=== PATIENT | female | born 1980 | race Caucasian/White ===

== ENCOUNTER 2017-12-24 07:21 | Emergency (ER) | payer OTHER ==
[~2017-12-24] VITALS: Ht 157.5 cm; Wt 94.8 kg
--- NOTE | 2017-12-24 07:44 | PHYS DOC ---
Past Medical History Past Medical History: Constipation, Other Additional Past Medical Histor: seasonal allergies, back pain, endometriosis Past Surgical History: Other Additional Past Surgical Histo: back, umbilical surgery Alcohol Use: Occasionally Drug Use: None Adult General Chief Complaint Chief Complaint: ABDOMINAL PAIN HPI HPI Patient is a 36 year old female presented to ER today for evaluation of nausea , vomiting, diarrhea with lower abdominal pain since waking up this morning. Patient denies any fever. Patient denies any chest pain, no trouble breathing. Patient still has her gallbladder and appendix. Patient denies any urinary symptom, no vaginal bleeding or discharge. Patient has history of tubal ligation. She says she is on her period Review of Systems Review of Systems Constitutional: Denies fever or chills [] Eyes: Denies change in visual acuity, redness, or eye pain [] HENT: Denies nasal congestion or sore throat [] Respiratory: Denies cough or shortness of breath [] Cardiovascular: No additional information not addressed in HPI [] GI: POSITIVE FOR abdominal pain, nausea, vomiting, NO bloody stools, positive for diarrhea [] : Denies dysuria or hematuria [] Musculoskeletal: Denies back pain or joint pain [] Integument: Denies rash or skin lesions [] Neurologic: Denies headache, focal weakness or sensory changes [] Endocrine: Denies polyuria or polydipsia [] All other systems were reviewed and found to be within normal limits, except as documented in this note. Current Medications Current Medications Current Medications Medications (Trade) Dose Ordered Sig/Bam Start Time Stop Time Status Last Admin Dose Admin Fentanyl Citrate (Fentanyl 2ml Vial) 25 mcg 1X ONCE 12/24/17 08:00 12/24/17 08:01 DC 12/24/17 08:03 25 MCG Info (CONTRAST GIVEN -- Rx MONITORING) 1 each PRN DAILY PRN 12/24/17 08:00 12/26/17 07:59 Iohexol (Omnipaque 240 Mg/ml) 50 ml 1X ONCE 12/24/17 08:00 12/24/17 08:01 DC Iohexol (Omnipaque 300 Mg/ml) 75 ml 1X ONCE 12/24/17 08:00 12/24/17 08:01 DC 12/24/17 08:00 75 ML Ondansetron HCl (Zofran) 4 mg 1X ONCE 12/24/17 08:00 12/24/17 08:01 DC 12/24/17 08:03 4 MG Sodium Chloride 1,000 ml @ 1,000 mls/hr Q1H 12/24/17 08:00 12/24/17 08:59 DC 12/24/17 08:04 1,000 MLS/HR Allergies Allergies Allergies Coded Allergies Type Severity Reaction Last Updated Verified latex Allergy Intermediate 12/24/17 Yes Physical Exam Physical Exam Constitutional: Well developed, well nourished, no acute distress, non-toxic appearance. [] HENT: Normocephalic, atraumatic, bilateral external ears normal, oropharynx moist, no oral exudates, nose normal. [] Eyes: PERRLA, EOMI, conjunctiva normal, no discharge. [] Neck: Normal range of motion, no tenderness, supple, no stridor. [] Cardiovascular:Heart rate regular rhythm, no murmur [] Lungs & Thorax: Bilateral breath sounds clear to auscultation [] Abdomen: Bowel sounds normal, soft, There is tenderness to palpation in periumbillical area., no masses, no pulsatile masses, no hernia, no rebound tenderness, no guarding. Skin: Warm, dry, no erythema, no rash. [] Back: No tenderness, no CVA tenderness. [] Extremities: No tenderness, no cyanosis, no clubbing, ROM intact, no edema. [] Neurologic: Alert and oriented X 3, normal motor function, normal sensory function, no focal deficits noted. [] Psychologic: Affect normal, judgement normal, mood normal. [] Current Patient Data Vital Signs Vital Signs Date Time Temp Pulse Resp B/P (MAP) Pulse Ox O2 Delivery O2 Flow Rate FiO2 12/24/17 08:30 86 16 125/86 (99) 97 Room Air 12/24/17 07:41 98.0 98.0 Lab Values Laboratory Tests Test 12/24/17 07:31 12/24/17 07:39 12/24/17 07:55 Urine Collection Type Unknown Urine Color Yellow Urine Clarity Clear Urine pH 7.0 Urine Specific [place] 1.010 Urine Protein Negative mg/dL (NEG-TRACE) Urine Glucose (UA) Negative mg/dL (NEG) Urine Ketones (Stick) Negative mg/dL (NEG) Urine Blood Large (NEG) Urine Nitrite Negative (NEG) Urine Bilirubin Negative (NEG) Urine Urobilinogen Dipstick 0.2 mg/dL (0.2 mg/dL) Urine Leukocyte Esterase Trace (NEG) Urine RBC >40 /HPF (0-2) Urine WBC 1-4 /HPF (0-4) Urine Squamous Epithelial Cells Few /LPF Urine Bacteria Few /HPF (0-FEW) POC Urine HCG, Qualitative Hcg negative (Negative) White Blood Count 6.6 x10^3/uL (4.0-11.0) Red Blood Count 4.85 x10^6/uL (3.50-5.40) Hemoglobin 12.1 g/dL (12.0-15.5) Hematocrit 36.4 % (36.0-47.0) Mean Corpuscular Volume 75 fL (79-100) L Mean Corpuscular Hemoglobin 25 pg (25-35) Mean Corpuscular Hemoglobin Concent 33 g/dL (31-37) Red Cell Distribution Width 16.5 % (11.5-14.5) H Platelet Count 292 x10^3/uL (140-400) Neutrophils (%) (Auto) 67 % (31-73) Lymphocytes (%) (Auto) 24 % (24-48) Monocytes (%) (Auto) 5 % (0-9) Eosinophils (%) (Auto) 3 % (0-3) Basophils (%) (Auto) 1 % (0-3) Neutrophils # (Auto) 4.5 x10^3uL (1.8-7.7) Lymphocytes # (Auto) 1.6 x10^3/uL (1.0-4.8) Monocytes # (Auto) 0.3 x10^3/uL (0.0-1.1) Eosinophils # (Auto) 0.2 x10^3/uL (0.0-0.7) Basophils # (Auto) 0.1 x10^3/uL (0.0-0.2) Prothrombin Time 12.2 SEC (11.7-14.0) Prothrombin Time INR 1.0 (0.8-1.1) PTT 30 SEC (24-38) Sodium Level 138 mmol/L (136-145) Potassium Level 3.9 mmol/L (3.5-5.1) Chloride Level 102 mmol/L (98-107) Carbon Dioxide Level 28 mmol/L (21-32) Anion Gap 8 (6-14) Blood Urea Nitrogen 8 mg/dL (7-20) Creatinine 0.8 mg/dL (0.6-1.0) Estimated GFR (Cockcroft-Gault) 80.3 BUN/Creatinine Ratio 10 (6-20) Glucose Level 123 mg/dL (70-99) H Calcium Level 9.1 mg/dL (8.5-10.1) Total Bilirubin 0.2 mg/dL (0.2-1.0) Aspartate Amino Transferase (AST) 12 U/L (15-37) L Alanine Aminotransferase (ALT) 22 U/L (14-59) Alkaline Phosphatase 68 U/L (46-116) Total Protein 7.3 g/dL (6.4-8.2) Albumin 3.5 g/dL (3.4-5.0) Albumin/Globulin Ratio 0.9 (1.0-1.7) L Lipase 129 U/L (73-393) Laboratory Tests 12/24/17 07:55 Laboratory Tests 12/24/17 07:55 EKG EKG [] Radiology/Procedures Radiology/Procedures [][facility] [address] [place] [address] IMAGING REPORT Signed PATIENT: MARTINA WILKERSON ACCOUNT: [id number] : 1980 LOCATION: ER AGE: 36 SEX: F EXAM STATUS: REG ER ORD. PHYSICIAN: FLO ORTIZ DO REASON: LOWER ABDOMINAL PAIN, NAUSEA, VOMITING SINCE THIS MORNING PROCEDURE: CT ABD PELV W/ORAL&IV CONTRAST PQRS Compliance statement: One or more of the following individualized dose reduction techniques were utilized for this examination: 1. Automated exposure control. 2. Adjustment of the mA and/or kV according to patient size. 3. Use of iterative reconstruction technique. Indication:LOWER ABD PAIN WITH NAUSEA AND VOMITING
OMNI 300 75ML, OMNI 240 50ML ORAL, NO PRIORS TECHNIQUE: CT abdomen and pelvis with IV contrast with multiplanar reformats. COMPARISON: None FINDINGS: Heart is normal in size. No pericardial or pleural effusion. Clear lung bases. Liver, spleen, gallbladder, pancreas, adrenals and kidneys are within normal limits. No enlarged retroperitoneal or pelvic adenopathy. No free pelvic fluid or ascites. No bowel obstruction. Moderate diffuse colonic stool burden. Normal appendix. There is a short segment narrowing of the proximal colon measuring approximately 5 cm in length with mucosal enhancement. No pericolonic inflammatory changes. Fluid-filled ascending colon is seen. There is mild circumferential wall thickening of the terminal ileum with mucosal enhancement. Anteverted uterus. Urinary bladder is within normal limits. No pneumoperitoneum or pneumatosis intestinalis. No suspicious bony lesion. Advanced L5-S1 degenerative disc disease. There is right parasagittal small supraumbilical omental fat-containing hernia with neck of the hernia measuring 2.0 cm. IMPRESSION: 1. Questionable mild wall thickening of the terminal ileum and mucosal enhancement with fluid-filled distal bowel loops. Findings suggests enteritis. Clinically correlate with signs and symptoms. 2. Short segment narrowing of the proximal transverse colon with mucosal enhancement. Differential diagnoses includes artifact secondary to peristalsis or short segment colitis or stricture. Correlate with nonemergent colonoscopy. Electronically signed by: Harshil Linares DO (12/24/2017 9:43 AM) [id number] DICTATED and SIGNED BY: HARSHIL LINARES DO DATE: 12/24/17 0936 Course & Med Decision Making Course & Med Decision Making Pertinent Labs and Imaging studies reviewed. (See chart for details) [] Dragon Disclaimer Dragon Disclaimer This electronic medical record was generated, in whole or in part, using a voice recognition dictation system. Departure Departure Impression: Primary Impression: Gastroenteritis Disposition: 01 HOME, SELF-CARE Condition: STABLE Referrals: REHAN MARINELLI (PCP) Patient Instructions: Viral Gastroenteritis Scripts Ondansetron Hcl (ZOFRAN) 4 Mg Tablet 1 TAB PO Q6HRS PRN for NAUSEA, #15 TAB Prov: FLO ORTIZ DO 12/24/17 Ciprofloxacin Hcl (CIPRO) 500 Mg Tablet 1 TAB PO BID for 5 Days, #10 TAB Prov: FLO ORTIZ DO 12/24/17 FLO ORTIZ DO Dec 24, 2017 07:43
[2017-12-24 07:48] LABS: BILIRUBIN,URINE NEGATIVE (NEG); CLARITY,URINE CLEAR; COLOR,URINE YELLOW; NITRITE,URINE NEGATIVE (NEG); PROTEIN,URINE NEGATIVE (NEG-TRACE); UROBILINOGEN,URINE 0.2 mg/dL (0.2 mg/dL)
[2017-12-24 07:53] LABS: RBC,URINE >40 /HPF (0-2); SQUAMOUS EPITHELIAL CELL,UR FEW /LPF
[2017-12-24 07:54] LABS: BACTERIA,URINE FEW /HPF (0-FEW)
[2017-12-24] MEDS ORDERED: IOHEXOL 240 MG/ML 50ML VIAL. PO ONE (08:00)
[2017-12-24] MEDS ORDERED: CONTRAST GIVEN. MC PRN (08:00)
[2017-12-24] MEDS: IOHEXOL 300 MG/ML 100ML VIAL. IV ONE (08:00)
[2017-12-24] MEDS: fentaNYL PF VIAL 100 MCG/2 ML VIAL IV ONE (08:03)
[2017-12-24] MEDS: ONDANSETRON PF 4 MG/2 ML VIAL. IV ONE (08:03)
[2017-12-24] MEDS: IV NORMAL SALINE 1000ML BAG 1,000 ML IV SCH (08:04)
[2017-12-24 08:18] LABS: BASO # 0.1 x10^3/uL (0.0-0.2); BASO % 1 % (0-3); EOS # 0.2 x10^3/uL (0.0-0.7); EOS % 3 % (0-3); HEMATOCRIT 36.4 % (36.0-47.0); HEMOGLOBIN 12.1 g/dL (12.0-15.5); LYMPH # 1.6 x10^3/uL (1.0-4.8); LYMPH % 24 % (24-48); MEAN CORPUSCULAR HEMOGLOBIN 25 pg (25-35); MEAN CORPUSCULAR HGB CONC 33 g/dL (31-37); MEAN CORPUSCULAR VOLUME 75 fL (79-100); MONO # 0.3 x10^3/uL (0.0-1.1); MONO % 5 % (0-9); NEUT # 4.5 x10^3uL (1.8-7.7); NEUT % 67 % (31-73); PLATELET COUNT 292 x10^3/uL (140-400); RED BLOOD COUNT 4.85 x10^6/uL (3.50-5.40); RED CELL DISTRIBUTION WIDTH 16.5 % (11.5-14.5); WHITE BLOOD COUNT 6.6 x10^3/uL (4.0-11.0)
[2017-12-24 08:22] LABS: PROTHROMBIN TIME PATIENT 12.2 SEC (11.7-14.0)
[2017-12-24 08:25] LABS: CALCIUM 9.1 mg/dL (8.5-10.1); CREATININE 0.8 mg/dL (0.6-1.0); GFR 80.3; POTASSIUM 3.9 mmol/L (3.5-5.1)
[2017-12-24 08:29] LABS: ALBUMIN 3.5 g/dL (3.4-5.0); ALBUMIN/GLOBULIN RATIO 0.9 (1.0-1.7); TOTAL BILIRUBIN 0.2 mg/dL (0.2-1.0); TOTAL PROTEIN 7.3 g/dL (6.4-8.2)
--- NOTE | 2017-12-24 09:46 | RAD ---
PQRS Compliance statement: One or more of the following individualized dose reduction techniques were utilized for this examination: 1. Automated exposure control. 2. Adjustment of the mA and/or kV according to patient size. 3. Use of iterative reconstruction technique. Indication:LOWER ABD PAIN WITH NAUSEA AND VOMITING
OMNI 300 75ML, OMNI 240 50ML ORAL, NO PRIORS TECHNIQUE: CT abdomen and pelvis with IV contrast with multiplanar reformats. COMPARISON: None FINDINGS: Heart is normal in size. No pericardial or pleural effusion. Clear lung bases. Liver, spleen, gallbladder, pancreas, adrenals and kidneys are within normal limits. No enlarged retroperitoneal or pelvic adenopathy. No free pelvic fluid or ascites. No bowel obstruction. Moderate diffuse colonic stool burden. Normal appendix. There is a short segment narrowing of the proximal colon measuring approximately 5 cm in length with mucosal enhancement. No pericolonic inflammatory changes. Fluid-filled ascending colon is seen. There is mild circumferential wall thickening of the terminal ileum with mucosal enhancement. Anteverted uterus. Urinary bladder is within normal limits. No pneumoperitoneum or pneumatosis intestinalis. No suspicious bony lesion. Advanced L5-S1 degenerative disc disease. There is right parasagittal small supraumbilical omental fat-containing hernia with neck of the hernia measuring 2.0 cm. IMPRESSION: 1. Questionable mild wall thickening of the terminal ileum and mucosal enhancement with fluid-filled distal bowel loops. Findings suggests enteritis. Clinically correlate with signs and symptoms. 2. Short segment narrowing of the proximal transverse colon with mucosal enhancement. Differential diagnoses includes artifact secondary to peristalsis or short segment colitis or stricture. Correlate with nonemergent colonoscopy. Electronically signed by: Harshil Linares DO (12/24/2017 9:43 AM) [id number]
[2017-12-24 10:30] VITALS: BP 122/67
[2017-12-24] MEDS ORDERED: CIPR500T94 PO (10:30)
[2017-12-24] MEDS ORDERED: ONDA4TAB7 PO (10:30)
== END 2017-12-24 11:14 | disposition home or self-care (01) ==
LOC: ER 07:21
DX: K52.89 Other specified noninfective gastroenteritis and colitis (principal); Z98.51 Tubal ligation status; Z91.040 Latex allergy status
CPT/HCPCS: 36415; 74177; 80053; 81001; 81025; 83690; 85025; 85610; 85730; 96361; 96374; 96375; 99285; J2405; J3010; J7030; Q9967

== ENCOUNTER 2018-02-02 12:39 | Emergency (ER) | payer OTHER ==
[~2018-02-02] VITALS: Ht 160 cm; Wt 94.8 kg
[~2018-02-02 12:39] MED LIST: CIPR500T94 PO; ONDA4TAB7 PO
[2018-02-02 13:11] VITALS: BP 147/74
[2018-02-02] MEDS ORDERED: IBUPROFEN 600 MG TABLET. PO ONE (13:30)
[2018-02-02] MEDS ORDERED: IBUP-1007 PO (13:40)
[2018-02-02] MEDS ORDERED: BENZ100C PO (13:40)
[2018-02-02] MEDS ORDERED: PRED20TA PO (13:40)
--- NOTE | 2018-02-02 13:40 | PHYS DOC ---
Past Medical History Past Medical History: Bipolar, Constipation, Other Additional Past Medical Histor: seasonal allergies, back pain, endometriosis, fibromyalgia, nerve damage Past Surgical History: Other Additional Past Surgical Histo: back, umbilical surgery, tubal blocks Alcohol Use: Occasionally Drug Use: None Adult General Chief Complaint Chief Complaint: COUGH HPI HPI Patient is a 37 year old female who presents with cough, headache, nausea, runny nose, generalized body aches she rates a 7 out of 10 that started yesterday at 1600. She denies any, diarrhea, fever. She states she is not taking any medications for her symptoms. She has history of smoking and asthma. She doesn't take anything for her asthma because she doesn't have any problems. Patient is allergic to latex. Review of Systems Review of Systems Constitutional: Denies fever or chills [] Eyes: Denies change in visual acuity, redness, or eye pain [] HENT: nasal congestion. Denies sore throat [] Respiratory: cough. Denies shortness of breath [] Cardiovascular: No additional information not addressed in HPI [] GI: Denies abdominal pain. nausea, denies vomiting, bloody stools or diarrhea [] : Denies dysuria or hematuria [] Musculoskeletal: Body aches Denies back pain or joint pain [] Integument: Denies rash or skin lesions [] Neurologic: headache, denies focal weakness or sensory changes [] All other systems were reviewed and found to be within normal limits, except as documented in this note. Current Medications Current Medications Current Medications Medications (Trade) Dose Ordered Sig/Bam Start Time Stop Time Status Last Admin Dose Admin Ibuprofen (Motrin) 600 mg 1X ONCE 02/02/18 13:30 02/02/18 13:31 DC 02/02/18 13:29 600 MG Allergies Allergies Allergies Coded Allergies Type Severity Reaction Last Updated Verified latex Allergy Intermediate 12/24/17 Yes Physical Exam Physical Exam Constitutional: Well developed, well nourished, no acute distress, non-toxic appearance. [] HENT: Normocephalic, atraumatic, bilateral external ears normal, oropharynx moist, no oral exudates, nose normal. Throat Reddened without exudates. Clear rhinorrhea. [] Eyes: PERRLA, EOMI, conjunctiva normal, no discharge. [] Neck: Normal range of motion, no tenderness, supple, no stridor. [] Cardiovascular:Heart rate regular rhythm, no murmur [] Lungs & Thorax: Bilateral breath sounds clear to auscultation [] Abdomen: Bowel sounds normal, soft, no tenderness, no masses, no pulsatile masses. [] Skin: Warm, dry, no erythema, no rash. [] Back: No tenderness, no CVA tenderness. [] Extremities: No tenderness, no cyanosis, no clubbing, ROM intact, no edema. [] Neurologic: Alert and oriented X 3, normal motor function, normal sensory function, no focal deficits noted. [] Psychologic: Affect normal, judgement normal, mood normal. [] Current Patient Data Vital Signs Vital Signs Date Time Temp Pulse Resp B/P (MAP) Pulse Ox O2 Delivery O2 Flow Rate FiO2 02/02/18 13:11 99.0 83 16 147/74 (98) 96 Room Air 99.0 Lab Values Laboratory Tests Test 02/02/18 13:30 Influenza Type A Antigen Positive (NEGATIVE) Influenza Type B Antigen Negative (NEGATIVE) EKG EKG [] Radiology/Procedures Radiology/Procedures [] Course & Med Decision Making Course & Med Decision Making Patient is a 37 year old female who presents with cough, headache, nausea, runny nose, generalized body aches she rates a 7 out of 10 that started yesterday at 1600. She denies any, diarrhea, soa, chest pain or fever. She states she is not taking any medications for her symptoms. She has history of smoking and asthma. She doesn't take anything for her asthma because she doesn' t have any problems. Patient is allergic to latex. Afebrile. Lungs are clear to auscultation all lobes. Alert and oriented. Skin is pink warm and dry. Mucous membranes are moist. Bilateral tympanic membranes are pearly white. Throat is reddened but without exudates. Abdomen is soft and nontender. She has no rashes. FLU A Positive Staff Physician Addendum: I was working in the ER during the course of this patient's visit. I was available for consultation as needed, but I was not directly involved in the care of this patient. Dragon Disclaimer Dragon Disclaimer This electronic medical record was generated, in whole or in part, using a voice recognition dictation system. Departure Departure Impression: Primary Impression: Viral respiratory infection Additional Impression: Influenza A Disposition: 01 HOME, SELF-CARE Condition: STABLE Referrals: REHAN MARINELLI (PCP) Patient Instructions: Upper Respiratory Infection, Adult, Viral Infections Additional Instructions: Follow up with your primary care. Take medications as prescribed. Try taking otc cold medications. Scripts Oseltamivir Phosphate (TAMIFLU) 75 Mg Capsule 1 CAP PO BID, #10 CAP Prov: OSMAN SANCHEZ CRANE OPERATOR 02/02/18 Ibuprofen (IBUPROFEN) 600 Mg Tablet 600 MG PO PRN Q6HRS PRN for INFLAMMATION, #20 TAB Prov: OSMAN SANCHEZ CRANE OPERATOR 02/02/18 Benzonatate (TESSALON PERLE) 100 Mg Capsule 1 CAP PO TID, #21 CAP Prov: OSMAN SANCHEZ CRANE OPERATOR 02/02/18 Prednisone (PREDNISONE) 20 Mg Tablet 1 TAB PO DAILY, #5 TAB Prov: OSMAN SANCHEZ CRANE OPERATOR 02/02/18 Problem Qualifiers OSMAN SANCHEZ APRN Feb 02, 2018 13:40 EDSON LOPEZ MD Feb 02, 2018 18:01
[2018-02-02 14:01] LABS: INFLUENZA A PATIENT POSITIVE (NEGATIVE); INFLUENZA B PATIENT NEGATIVE (NEGATIVE)
[2018-02-02] MEDS ORDERED: OSEL75CA PO (14:03)
== END 2018-02-02 14:24 | disposition home or self-care (01) ==
LOC: ER 12:39
DX: J09.X2 Influenza due to identified novel influenza A virus with other respiratory manifestations (principal); F31.9 Bipolar disorder, unspecified; Z91.040 Latex allergy status
CPT/HCPCS: 87804; 99283

== ENCOUNTER 2018-03-31 13:34 | Emergency (ER) | payer SELFPAY ==
[~2018-03-31] VITALS: Ht 160 cm; Wt 94.8 kg
[~2018-03-31 13:34] MED LIST changes: +BENZ100C PO; +IBUP-1007 PO; +OSEL75CA PO; +PRED20TA PO
[2018-03-31 13:51] VITALS: BP 120/67
[2018-03-31 14:11] LABS: BILIRUBIN,URINE NEGATIVE (NEG); CLARITY,URINE CLEAR; COLOR,URINE YELLOW; NITRITE,URINE NEGATIVE (NEG); PH,URINE 6.5; PROTEIN,URINE NEGATIVE (NEG-TRACE); UROBILINOGEN,URINE 0.2 mg/dL (0.2 mg/dL)
[2018-03-31 14:24] LABS: BASO # 0.1 x10^3/uL (0.0-0.2); BASO % 1 % (0-3); EOS # 0.2 x10^3/uL (0.0-0.7); EOS % 3 % (0-3); HEMATOCRIT 33.5 % (36.0-47.0); HEMOGLOBIN 11.1 g/dL (12.0-15.5); LYMPH # 2.4 x10^3/uL (1.0-4.8); LYMPH % 30 % (24-48); MEAN CORPUSCULAR HEMOGLOBIN 24 pg (25-35); MEAN CORPUSCULAR HGB CONC 33 g/dL (31-37); MEAN CORPUSCULAR VOLUME 73 fL (79-100); MONO # 0.4 x10^3/uL (0.0-1.1); MONO % 5 % (0-9); NEUT # 4.9 x10^3uL (1.8-7.7); NEUT % 61 % (31-73); PLATELET COUNT 292 x10^3/uL (140-400); RED BLOOD COUNT 4.57 x10^6/uL (3.50-5.40); RED CELL DISTRIBUTION WIDTH 17.8 % (11.5-14.5)
[2018-03-31 14:25] LABS: BARBITURATES NEG (NEG); BENZODIAZEPINES NEG (NEG); CANNABINOIDS POS (NEG); COCAINE NEG (NEG); METHADONE NEG (NEG); OPIATES NEG (NEG); PHENCYCLIDINE NEG (NEG)
[2018-03-31 14:26] LABS: AMPHETAMINE/METHAMPHETAMINE NEG (NEG)
[2018-03-31 14:27] LABS: BACTERIA,URINE FEW /HPF (0-FEW); RBC,URINE 0 /HPF (0-2); SQUAMOUS EPITHELIAL CELL,UR MOD /LPF
[2018-03-31 14:33] LABS: CALCIUM 8.9 mg/dL (8.5-10.1); CREATININE 0.9 mg/dL (0.6-1.0); GFR 69.7; POTASSIUM 3.5 mmol/L (3.5-5.1)
--- NOTE | 2018-03-31 15:38 | RAD ---
Examination: 2 views of the lumbar spine HISTORY: History of low back pain COMPARISON: None available FINDINGS: 6 lumbar vertebrae are assumed. Moderate intervertebral disc height loss identified at L5-6 and L6-S1 vertebral levels. The facets are well aligned. IMPRESSION: 1. No acute osseous findings. 2. Degenerative changes lumbar spine. Electronically signed by: Basil Crook MD (03/31/2018 3:35 PM) [id number]
--- NOTE | 2018-03-31 16:05 | PHYS DOC ---
Past Medical History Past Medical History: Bipolar, Constipation, Other Additional Past Medical Histor: seasonal allergies, back pain, endometriosis, fibromyalgia, nerve damage Past Surgical History: Other Additional Past Surgical Histo: back, umbilical surgery, tubal blocks Alcohol Use: Occasionally Drug Use: None Adult General Chief Complaint Chief Complaint: BACK PAIN OR INJURY HPI HPI Patient is a 37 year old female with history of bipolar who presents to the ED today complaining of chronic bilateral lower back pain worse in the last 1 week. Patient denies pain radiating to bilateral lower extremities, denies any loss of bowel bladder function. Denies any numbness or tingling to bilateral lower extremities. Patient is also complaining her feet are swollen. Review of Systems Review of Systems Constitutional: Denies fever or chills [] Eyes: Denies change in visual acuity, redness, or eye pain [] HENT: Denies nasal congestion or sore throat [] Respiratory: Denies cough or shortness of breath [] Cardiovascular: No additional information not addressed in HPI [] GI: Denies abdominal pain, nausea, vomiting, bloody stools or diarrhea [] : Denies dysuria or hematuria [] Musculoskeletal: Reports bilateral low back pain and chronic disease, reports lower extremity swelling Integument: Denies rash or skin lesions [] Neurologic: Denies headache, focal weakness or sensory changes [] Endocrine: Denies polyuria or polydipsia [] All other systems were reviewed and found to be within normal limits, except as documented in this note. Allergies Allergies Allergies Coded Allergies Type Severity Reaction Last Updated Verified latex Allergy Intermediate 12/24/17 Yes Physical Exam Physical Exam Constitutional: Well developed, well nourished, no acute distress, non-toxic appearance. [] HENT: Normocephalic, atraumatic, bilateral external ears normal, oropharynx moist, no oral exudates, nose normal. [] Eyes: PERRLA, EOMI, conjunctiva normal, no discharge. [] Neck: Normal range of motion, no tenderness, supple, no stridor. [] Cardiovascular:Heart rate regular rhythm, no murmur [] Lungs & Thorax: Bilateral breath sounds clear to auscultation [] Abdomen: Bowel sounds normal, soft, no tenderness, no masses, no pulsatile masses. [] Skin: Warm, dry, no erythema, no rash. [] Back: Old healed surgical incision noted midline lumbar spine diffuse paraspinal tenderness throughout the lumbar spine, no midline lumbar spine tenderness, no CVA tenderness. [] Extremities: No tenderness, no cyanosis, no clubbing, ROM intact, no edema. Negative Homans sign bilaterally. Neurologic: Alert and oriented X 3, normal motor function, normal sensory function, no focal deficits noted. [] Psychologic: Affect normal, judgement normal, mood normal. [] Current Patient Data Vital Signs Vital Signs Date Time Temp Pulse Resp B/P (MAP) Pulse Ox O2 Delivery O2 Flow Rate FiO2 03/31/18 13:51 97.9 85 18 120/67 (84) 98 Room Air 97.9 Lab Values Laboratory Tests Test 03/31/18 13:24 03/31/18 14:15 Urine Collection Type Unknown Urine Color Yellow Urine Clarity Clear Urine pH 6.5 Urine Specific [place] 1.010 Urine Protein Negative mg/dL (NEG-TRACE) Urine Glucose (UA) Negative mg/dL (NEG) Urine Ketones (Stick) Negative mg/dL (NEG) Urine Blood Moderate (NEG) Urine Nitrite Negative (NEG) Urine Bilirubin Negative (NEG) Urine Urobilinogen Dipstick 0.2 mg/dL (0.2 mg/dL) Urine Leukocyte Esterase Small (NEG) Urine RBC 0 /HPF (0-2) Urine WBC 1-4 /HPF (0-4) Urine Squamous Epithelial Cells Mod /LPF Urine Bacteria Few /HPF (0-FEW) Urine Opiates Screen Neg (NEG) Urine Methadone Screen Neg (NEG) Urine Barbiturates Neg (NEG) Urine Phencyclidine Screen Neg (NEG) Urine Amphetamine/Methamphetamine Neg (NEG) Urine Benzodiazepines Screen Neg (NEG) Urine Cocaine Screen Neg (NEG) Urine Cannabinoids Screen Pos (NEG) Urine Ethyl Alcohol Neg (NEG) White Blood Count 8.0 x10^3/uL (4.0-11.0) Red Blood Count 4.57 x10^6/uL (3.50-5.40) Hemoglobin 11.1 g/dL (12.0-15.5) L Hematocrit 33.5 % (36.0-47.0) L Mean Corpuscular Volume 73 fL (79-100) L Mean Corpuscular Hemoglobin 24 pg (25-35) L Mean Corpuscular Hemoglobin Concent 33 g/dL (31-37) Red Cell Distribution Width 17.8 % (11.5-14.5) H Platelet Count 292 x10^3/uL (140-400) Neutrophils (%) (Auto) 61 % (31-73) Lymphocytes (%) (Auto) 30 % (24-48) Monocytes (%) (Auto) 5 % (0-9) Eosinophils (%) (Auto) 3 % (0-3) Basophils (%) (Auto) 1 % (0-3) Neutrophils # (Auto) 4.9 x10^3uL (1.8-7.7) Lymphocytes # (Auto) 2.4 x10^3/uL (1.0-4.8) Monocytes # (Auto) 0.4 x10^3/uL (0.0-1.1) Eosinophils # (Auto) 0.2 x10^3/uL (0.0-0.7) Basophils # (Auto) 0.1 x10^3/uL (0.0-0.2) Sodium Level 139 mmol/L (136-145) Potassium Level 3.5 mmol/L (3.5-5.1) Chloride Level 102 mmol/L (98-107) Carbon Dioxide Level 31 mmol/L (21-32) Anion Gap 6 (6-14) Blood Urea Nitrogen 6 mg/dL (7-20) L Creatinine 0.9 mg/dL (0.6-1.0) Estimated GFR (Cockcroft-Gault) 69.7 Glucose Level 120 mg/dL (70-99) H Calcium Level 8.9 mg/dL (8.5-10.1) [id number]-Type Natriuretic Peptide 50 pg/mL (0-124) Ethyl Alcohol Level < 10 mg/dL (0-10) Laboratory Tests 03/31/18 14:15 Laboratory Tests 03/31/18 14:15 EKG EKG [] Radiology/Procedures Radiology/Procedures [] Course & Med Decision Making Course & Med Decision Making Pertinent Labs and Imaging studies reviewed. (See chart for details) This is a 37-year-old female patient with history of chronic low back pain presenting to the ED today complaining of chronic low back pain and bilateral lower extremity swelling. Lumbar spine x-rays are negative for any acute findings. No obvious edema noted to bilateral lower extremities. CBC, BMP BNP are negative.Compression stockings recommended. Elevation recommended to bilateral lower extremities. ktracs shows patient received 120 tablets of tramadol on 2018. Patient advised to continue taking tramadol. Follow-up with her own PCP. Michelle Disclaimer Michelle Disclaimer This electronic medical record was generated, in whole or in part, using a voice recognition dictation system. Departure Departure Impression: Primary Impression: Chronic low back pain Additional Impression: Edema Disposition: 01 HOME, SELF-CARE Condition: STABLE Referrals: REHAN MARINELLI (PCP) Follow-up next week Patient Instructions: Back Pain, Adult, Edema, [id number] Additional Instructions: You were evaluated in the emergency room for chronic low back pain and bilateral lower extremity swelling. Please wear compression stockings and elevate your extremities. Continue taking Tramadol from your doctor Problem Qualifiers Primary Impression: Chronic low back pain Back pain laterality: bilateral Sciatica presence: without sciatica Qualified Codes: M54.5 - Low back pain; G89.29 - Other chronic pain Additional Impression: Edema Edema type: unspecified Qualified Codes: R60.9 - Edema, unspecified COOPER HARRELL APRN Mar 31, 2018 16:05
== END 2018-03-31 16:09 | disposition home or self-care (01) ==
LOC: ER 13:34
DX: G89.29 Other chronic pain (principal); M54.5 Low back pain; R60.0 Localized edema; F31.9 Bipolar disorder, unspecified; Z91.040 Latex allergy status
CPT/HCPCS: 36415; 72100; 80048; 80307; 81001; 83880; 85025; 87086; 99284; G0480